=== PATIENT | male | born 2000 | race Caucasian/White ===

== ENCOUNTER 2018-11-27 12:14 | Emergency (ER) | payer MEDICAID ==
[~2018-11-27] VITALS: Ht 175.3 cm; Wt 72.7 kg
[2018-11-27] MEDS ORDERED: MEDROL 4MG DOSPA4 MG PO (14:38)
[2018-11-27 15:30] VITALS: BP 128/88; PULSE 66; TEMP 98.2
== END 2018-11-27 15:30 | disposition home or self-care (01) ==
LOC: COL.ER 12:14
DX: T18.190A Other foreign object in esophagus causing compression of trachea, initial encounter (principal); F17.210 Nicotine dependence, cigarettes, uncomplicated
CPT/HCPCS: J2060; J2405; J2930; J7030; Q9967